=== PATIENT | male | born 1930 | race Caucasian/White ===

== ENCOUNTER 2016-12-29 16:36 | Inpatient (IN) | payer OTHER, MEDICARE, BLACK LUNG ==
[~2016-12-29] VITALS: Ht 193 cm; Wt 97.6 kg
[2016-12-30 04:33] LABS: HEMOGLOBIN 9.4 gm/dl (14.0-17.5); RED BLOOD COUNT 3.83 M/UL (4.20-5.50); WHITE BLOOD COUNT 14.2 K/UL (4.5-11.0)
[2016-12-30] MEDS ORDERED: HYDROCODON-ACE1 EAC4 PO (10:16)
[2016-12-30] MEDS ORDERED: NYSTATIN100000 UNI PO (10:18)
[2016-12-30] MEDS ORDERED: PREDNISONE 10 M10 MG PO (10:25)
[2016-12-30] MEDS ORDERED: DIFLUCAN 100 M100 MG PO (10:26)
[2016-12-30] MEDS ORDERED: DOXYCYCLINE MO100 MG PO (10:28)
[2016-12-30] MEDS ORDERED: IPRAT-ALBUT 0.5-3 ML INH (10:29)
[2016-12-30] MEDS ORDERED: ZOFRAN ODT 4 MG4 MG PO (10:30)
[2016-12-30] MEDS ORDERED: LANOXIN TAB0.125 MG PO (10:31)
[2016-12-30] MEDS ORDERED: MUCINEX600 MG PO (10:32)
[2016-12-30] MEDS ORDERED: BUMEX 1MG TABLET1 MG PO (10:39)
[2016-12-30] MEDS ORDERED: MONTELUKAST SOD10 MG PO (10:40)
[2016-12-30] MEDS ORDERED: DALIRESP500 MCG PO (10:41)
[2016-12-30] MEDS ORDERED: LEXAPRO TAB 1010 MG PO (10:41)
[2016-12-30] MEDS ORDERED: SPIRONOLACTONE25 MG PO (10:42)
[2016-12-30] MEDS ORDERED: ADVAIR 500-501 EACH INH (10:43)
[2016-12-30] MEDS ORDERED: CARAFATE1 GM PO (10:44)
[2016-12-30] MEDS ORDERED: CARDURA 2MG TAB2 MG PO (10:48)
[2016-12-30] MEDS ORDERED: LIORESAL TAB 1010 MG PO (10:48)
[2016-12-30] MEDS ORDERED: PROTONIX 40 MG40 M1 PO (10:49)
[2016-12-30] MEDS ORDERED: ROPINIROLE HCL0.5 MG PO (10:50)
[2016-12-30] MEDS ORDERED: FINASTERIDE5 MG PO (10:50)
[2016-12-30] MEDS ORDERED: METOPROLOL TART25 MG PO (10:50)
[2016-12-31 03:28] LABS: HEMOGLOBIN 8.8 gm/dl (14.0-17.5); RED BLOOD COUNT 3.64 M/UL (4.20-5.50)
[2016-12-31 03:33] LABS: WHITE BLOOD COUNT 10.5 K/UL (4.5-11.0)
[2016-12-31 03:59] LABS: BUN/CREATININE RATIO 24 (0-10)
[2017-01-01 04:13] LABS: RED BLOOD COUNT 3.66 M/UL (4.20-5.50); WHITE BLOOD COUNT 11.6 K/UL (4.5-11.0)
[2017-01-01 04:41] LABS: BUN/CREATININE RATIO 23 (0-10)
[2017-01-01] MEDS ORDERED: SPIRIVA RESPIMAT4 GM INH (10:39)
[2017-01-01] MEDS ORDERED: LEVEMIR100 UNIT/1 SQ (17:13)
[2017-01-01] MEDS ORDERED: MIRALAX17 GM PO (17:14)
[2017-01-01] MEDS ORDERED: LOPRESSOR 50 MG50 MG PO (17:15)
[2017-01-01] MEDS ORDERED: GLUCERNA237 ML PO (17:16)
[2017-01-01] MEDS ORDERED: IMDUR ER TAB 3030 MG PO (17:17)
[2017-01-01] MEDS ORDERED: MEGACE SUSP40 MG/ML PO (17:19)
== END 2017-01-01 17:51 | disposition home or self-care (01) | DRG 309 ==
LOC: CCU 19:52 → MED SURG 4 12-31 16:32
PROVIDERS: Internal Medicine; ADMIT Internal Medicine
DX: I48.92 Unspecified atrial flutter (principal); B37.0 Candidal stomatitis; E87.1 Hypo-osmolality and hyponatremia; J96.11 Chronic respiratory failure with hypoxia; I50.32 Chronic diastolic (congestive) heart failure; I13.0 Hypertensive heart and chronic kidney disease with heart failure and stage 1 through stage 4 chronic kidney disease, or unspecified chronic kidney disease; N18.3 Chronic kidney disease, stage 3 (moderate); J44.9 Chronic obstructive pulmonary disease, unspecified; R10.9 Unspecified abdominal pain; R07.9 Chest pain, unspecified; R53.1 Weakness; R63.4 Abnormal weight loss; K59.00 Constipation, unspecified; Z68.25 Body mass index [BMI] 25.0-25.9, adult; T38.0X5A Adverse effect of glucocorticoids and synthetic analogues, initial encounter; E11.21 Type 2 diabetes mellitus with diabetic nephropathy; Y92.009 Unspecified place in unspecified non-institutional (private) residence as the place of occurrence of the external cause; D50.9 Iron deficiency anemia, unspecified; N40.0 Benign prostatic hyperplasia without lower urinary tract symptoms; E66.9 Obesity, unspecified; Z87.891 Personal history of nicotine dependence; Z86.79 Personal history of other diseases of the circulatory system; Z87.19 Personal history of other diseases of the digestive system; Z28.21 Immunization not carried out because of patient refusal; Z87.11 Personal history of peptic ulcer disease; Z88.0 Allergy status to penicillin; Z79.891 Long term (current) use of opiate analgesic; Z79.52 Long term (current) use of systemic steroids; Z79.899 Other long term (current) drug therapy
CPT/HCPCS: ECHO; 36415; 80048; 80053; 80162; 81001; 82607; 82728; 82746; 82962; 83036; 83540; 83550; 83735; 84439; 84443; 85025; 85027; 87086; 92610; 93005; 93306; 94640; 94664; 97110; 97116